=== PATIENT | female | born 1980 | race Two or more races ===

== ENCOUNTER → 2024-02-23 | Outpatient (CLI) | payer BC, SELFPAY ==
[2024-02-23 13:14] LABS: Misc Send Out* See Sep Rpt
[2024-02-23 13:59] LABS: Follicle Stimulating Hormone 9.55 mIU/mL (See Note)
== END | disposition home or self-care (01) ==
PROVIDERS: Referring Provider Obstetrics & Gynecology Reproductive Endocrinology; Visit Provider Obstetrics & Gynecology Reproductive Endocrinology
DX: E34.9 Endocrine disorder, unspecified (principal)
CPT/HCPCS: 36415; 82397; 83001